=== PATIENT | male | born 1940 | race Caucasian/White ===

== ENCOUNTER 2019-11-24 08:15 | Inpatient (IN) | payer MEDICARE, OTHER ==
[~2019-11-24] VITALS: Ht 170.2 cm; Wt 63.7 kg
[2019-11-24] MEDS ORDERED: PANT40TA4 PO (09:21)
[2019-11-24] MEDS ORDERED: SIMV-46 PO (09:21)
[2019-11-24] MEDS ORDERED: DOCU-141 PO (09:21)
[2019-11-24] MEDS ORDERED: VENL150C58 PO (09:21)
[2019-11-24] MEDS ORDERED: DIVA250T4 PO (09:21)
[2019-11-24] MEDS ORDERED: ACETAMINOPHEN 325 MG TABLET PO PRN (09:30)
[2019-11-24] MEDS ORDERED: BLOOD SUGAR DIAGNOSTIC 1 EACH STRIP IN ONE (09:30)
[2019-11-24] MEDS ORDERED: MAGNESIUM HYDROXIDE 30 ML UDC PO PRN (09:30)
[2019-11-24] MEDS ORDERED: clonazePAM 0.5 MG TABLET PO PRN (09:30)
[2019-11-24] MEDS ORDERED: MAG HYDROX/AL HYDROX/SIMETH 30 ML UDC PO PRN (09:30)
[2019-11-24] MEDS ORDERED: TEMAZEPAM 7.5 MG CAPSULE PO PRN (09:30)
[2019-11-24 10:47] VITALS: BP 140/75
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
[2019-11-24] MEDS: VENLAFAXINE XR 150 MG CAP.SR.24H PO SCH ×2 (13:56→16:53)
[2019-11-24 16:00] VITALS: BP 138/70
[2019-11-24] MEDS: DOCUSATE SODIUM 100 MG CAPSULE PO SCH (16:53)
[2019-11-24 20:59] VITALS: BP 153/85
[2019-11-24] MEDS: SIMVASTATIN 20 MG TABLET PO SCH (21:48)
[2019-11-24] MEDS: DIVALPROEX SODIUM 250 MG TABLET.DR PO SCH (21:48)
[2019-11-25 07:36] LABS: ALBUMIN 3.6 g/dL (3.4-5.0); BILIRUBIN,TOTAL 1.3 mg/dL (0.2-1.0); CALCIUM, SERUM 8.6 mg/dL (8.5-10.1); CREATININE 0.9 mg/dL (0.6-1.3); POTASSIUM 4.5 mmol/L (3.5-5.1)
[2019-11-25 07:58] LABS: THYROID STIMULATING HORMONE 2.061 uIU/mL (0.358-3.74)
[2019-11-25 08:00] VITALS: BP 146/72
[2019-11-25] MEDS: PANTOPRAZOLE 40 MG TABLET.DR PO SCH (08:07)
[2019-11-25] MEDS: DOCUSATE SODIUM 100 MG CAPSULE PO SCH ×2 (08:07→16:17)
[2019-11-25] MEDS: VENLAFAXINE XR 150 MG CAP.SR.24H PO SCH ×2 (08:44→16:16)
[2019-11-25 16:01] VITALS: BP 147/67
[2019-11-25 19:58] VITALS: BP 145/67
[2019-11-25] MEDS: SIMVASTATIN 20 MG TABLET PO SCH (21:49)
[2019-11-25] MEDS: DIVALPROEX SODIUM 250 MG TABLET.DR PO SCH (21:49)
[2019-11-26] MEDS: PANTOPRAZOLE 40 MG TABLET.DR PO SCH (07:30)
[2019-11-26 08:00] VITALS: BP 125/61
[2019-11-26] MEDS: VENLAFAXINE XR 150 MG CAP.SR.24H PO SCH ×2 (08:57→17:30)
[2019-11-26] MEDS: DOCUSATE SODIUM 100 MG CAPSULE PO SCH ×2 (08:57→17:30)
--- NOTE | 2019-11-26 10:30 | NUR ---
FAMILY CONTACT: ROBBY contacted pts daughter Alondra [phone] and left a voicemail for callback to discuss pts discharge and treatment plan.
--- NOTE | 2019-11-26 11:59 | NUR ---
INITIAL DISCHARGE PLAN: Per pt he wishes to return home [address] [place] [address] where he lives with his . ROBBY will help form a safe and proper discharge in collaboration with .
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
--- NOTE | 2019-11-26 12:37 | NUR ---
FACILITY CONTACT: SW contacted [facility] Address: [address] [place] [address] and spoke with Mirna, admission coordinator who states that pt was given an overnight pass and that after he did not return for more than 72 hours they contacted his who requested pt be discharged. Per Ambar, social service director states that [facility] safely and properly discharged pt back home, she also stated that the MD gave a discharge order as well. Ambar states that pts daughter was not involved with pts care per pt and 's request. Ambar, also stated that home health was set up and everything was arranged for pt to return home.
[2019-11-26 16:00] VITALS: BP 133/69
[2019-11-26 20:32] VITALS: BP 125/78
[2019-11-26] MEDS: SIMVASTATIN 20 MG TABLET PO SCH (21:12)
[2019-11-26] MEDS: DIVALPROEX SODIUM 250 MG TABLET.DR PO SCH (21:12)
[2019-11-27 08:00] VITALS: BP 144/70
[2019-11-27] MEDS: VENLAFAXINE XR 150 MG CAP.SR.24H PO SCH ×2 (08:21→17:48)
[2019-11-27] MEDS: DOCUSATE SODIUM 100 MG CAPSULE PO SCH ×2 (08:21→17:48)
[2019-11-27] MEDS: PANTOPRAZOLE 40 MG TABLET.DR PO SCH (08:21)
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
--- NOTE | 2019-11-27 15:20 | NUR ---
GROUP NOTE: SW encouraged pt to attend group on this present day discussing "suicidal urges." Pt states that he is feeling sad due to his being hospitalized and him not being there with her. He states that his daughter kristie not answer his calls and she has not called him to provide him with an update on his 's progress. He denied suicidal ideation and states he is just sad. Pts mood appeared depressed with sad affect.
--- NOTE | 2019-11-27 15:40 | NUR ---
FAMILY CONTACT: ROBBY contacted pts daughter Alondra [phone] and left a voicemail for callback.
[2019-11-27 16:00] VITALS: BP 134/72
[2019-11-27 20:18] VITALS: BP 139/73
[2019-11-27] MEDS: DIVALPROEX SODIUM 250 MG TABLET.DR PO SCH (21:22)
[2019-11-27] MEDS: SIMVASTATIN 20 MG TABLET PO SCH (21:22)
[2019-11-28 08:00] VITALS: BP 105/55
[2019-11-28] MEDS: VENLAFAXINE XR 150 MG CAP.SR.24H PO SCH ×2 (08:06→16:21)
[2019-11-28] MEDS: DOCUSATE SODIUM 100 MG CAPSULE PO SCH ×2 (08:06→16:13)
[2019-11-28] MEDS: PANTOPRAZOLE 40 MG TABLET.DR PO SCH (08:07)
--- NOTE | 2019-11-28 14:30 | NUR ---
SNF REFERRAL: SW faxed SNF referral to [facility] Address: [address] [place] [address] and [facility] Address: [address] [place] [address] for review.
--- NOTE | 2019-11-28 14:54 | NUR ---
FAMILY CONTACT: ROBBY contacted pts daughter Alondra [phone] and informed her that MD wishes to discharge pt this Tuesday to a SNF. Daughter states that pts is out of the hospital and at a SNF and wishes for pt to be discharged to a SNF in [place], ROBBY informed her that she has faxed two SNF referrals in [place] and daughter agreed. ROBBY will provide her with updates as needed.
[2019-11-28 16:00] VITALS: BP 123/64
[2019-11-28 20:03] VITALS: BP 146/70
[2019-11-28] MEDS: SIMVASTATIN 20 MG TABLET PO SCH (21:42)
[2019-11-28] MEDS: DIVALPROEX SODIUM 250 MG TABLET.DR PO SCH (21:43)
[2019-11-29 08:00] VITALS: BP 138/65
[2019-11-29] MEDS: DOCUSATE SODIUM 100 MG CAPSULE PO SCH ×2 (08:11→17:00)
[2019-11-29] MEDS: VENLAFAXINE XR 150 MG CAP.SR.24H PO SCH ×2 (08:11→17:19)
[2019-11-29] MEDS: PANTOPRAZOLE 40 MG TABLET.DR PO SCH (08:11)
--- NOTE | 2019-11-29 09:54 | NUR ---
FAMILY CONTACT: ROBBY contacted pts daughter Alondra [phone] and left a voicemail for callback.
--- NOTE | 2019-11-29 12:08 | NUR ---
FAMILY CONTACT: ROBBY contacted pts daughter Alondra [phone] and left a voicemail for callback.
[2019-11-29 16:00] VITALS: BP 100/64
--- NOTE | 2019-11-29 19:30 | NUR ---
GPS RN NOTE, RECEIVED PATIENT AWAKE AND IN BED, NO S/S OR COMPLAINTS OF PAIN AT THIS TIME. PATIENT IS DISPLAYING NO S/S OF APPARENT DISTRESS AT THIS TIME. PATIENT BREATHING IS UNLABORED WITH EQUAL RISE AND FALL OF THE CHEST. PATIENT IS ALERT AND ORIENTED X 2-3 ON ROOM AIR WITH A SPO2 95%. PATIENT IS MED COMPLIANT, ANXIOUS AT TIMES, SUSPICIOUS, PARANOID, AND COOPERATIVE. PATIENT DENIES SUICIDAL AND HOMICIDAL IDEATIONS AT THIS TIME. PATIENT ASSISTED WITH TURNING AND REPOSITIONING Q2HR AND PRN FOR COMFORT AND CIRCULATION. PATIENT HAS NO NEEDS AT THIS TIME. PATIENT EDUCATED ON THE USE OF THE CALL MICHAELS. PATIENT BED SIDE RAILS UP X 2 FOR SAFETY. PATIENT BED IS LOCKED, LOW, WITH BED ALARM ON. WILL CONTINUE TO MONITOR THIS PATIENT Q15 MINUTES WITH THE HELP OF STAFF TO MAINTAIN SAFETY.
[2019-11-29 20:00] VITALS: BP 109/56
[2019-11-29] MEDS: DIVALPROEX SODIUM 250 MG TABLET.DR PO SCH (21:09)
[2019-11-29] MEDS: SIMVASTATIN 20 MG TABLET PO SCH (21:09)
[2019-11-30 08:00] VITALS: BP 125/53
[2019-11-30] MEDS: PANTOPRAZOLE 40 MG TABLET.DR PO SCH (08:03)
[2019-11-30] MEDS: DOCUSATE SODIUM 100 MG CAPSULE PO SCH ×3 (08:03→16:11)
[2019-11-30] MEDS: VENLAFAXINE XR 150 MG CAP.SR.24H PO SCH ×2 (08:03→16:11)
--- NOTE | 2019-11-30 08:07 | NUR ---
SNF REFERRAL: SW received a call from Lina, clinical research coordinator at [facility] Address: [address] [place] [address] stating pt has been accepted to the facility.
--- NOTE | 2019-11-30 09:09 | NUR ---
SNF REFERRAL: SW received a call from Nichole, admissions rn at [facility] Address: [address] [place] [phone] stating pt has been clinically denied due to being in a psych unit due to suicidal ideation.
--- NOTE | 2019-11-30 09:14 | NUR ---
FAMILY CONTACT: ROBBY contacted pts daughter Alondra [phone] and left a voicemail informing her pt has been accepted to [facility] and will be discharged tomorrow Tuesday12/01/19.
--- NOTE | 2019-11-30 09:55 | NUR ---
FAMILY CONTACT: SW received a call from pts daughter Alondra [phone] agreeing with pts discharge on Tuesday to [facility].
--- NOTE | 2019-11-30 10:28 | NUR ---
SNF REFERRAL: SW received a call from Lina, regional director of admissions at [facility] Address: [address] [place] [address] stating that after DON reviewed pts referral pt was not accepted due to his suicidal ideation.
--- NOTE | 2019-11-30 10:28 | NUR ---
FAMILY CONTACT: SW contacted pts daughter Alondra [phone] and left a voicemail informing her [facility] did not accept pt due to his suicidal ideation and requested a call back to discuss placement options.
--- NOTE | 2019-11-30 14:12 | NUR ---
SNF REFERRAL: ROBBY faxed SNF referral to [facility] Address: [address] [place] [address] for review. Addendum: 11/30/19 at 1423 by NATHALIE BUSTAMANTE SW faxed SNF referral to [facility] Address: [address] [place] [address] and [facility] Address: [address] [place] [address] for review.
--- NOTE | 2019-11-30 14:37 | NUR ---
SNF REFERRAL: SW received a call from Lelia admissions counselor at [facility] Address: [address] [place] [phone] stating pt could not be accepted due to them not having a male bed available and stating pt needs a locked facility.
--- NOTE | 2019-11-30 14:43 | NUR ---
SNF REFERRAL: SW faxed SNF referral to [facility] Address: [address] [facility], [place] [address] for review.
--- NOTE | 2019-11-30 14:49 | NUR ---
SNF REFERRAL: SW received a call from Deepthi acquisition marketing coordinator at [facility] Address: [address] [place] [address] stating pt was denied due to his suicidal ideation.
--- NOTE | 2019-11-30 15:56 | NUR ---
SNF REFERRAL: SW received a call from fifi Deleon at [facility] Address: [address] [place] [address] stating pt has been accepted to the facility.
[2019-11-30 16:00] VITALS: BP 123/69
--- NOTE | 2019-11-30 16:04 | NUR ---
FAMILY CONTACT: SW contacted pts daughter Alondra [phone] and informed her pt was not accepted to the SNF's in [place] and informed her pt was accepted to [facility], daughter agreed with discharge to [facility] tomorrow 12/01/19.
--- NOTE | 2019-11-30 16:09 | NUR ---
DISCHARGE NOTE: Pt discharging on Tuesday12/01/19 at 11:00am via [facility] to [facility] ([facility] Address: [address] [place] [address] . Pts daughter Alondra [phone] has been notified and agrees with discharge. Pts mood is euthymic with congrent affect. Pt denied visual/auditory hallucinations and denied suicidal/homicidal ideation. Pt will be under the care of Psychiatrist: Dr. Pamela Spears [address] [address] [phone] and Senior Water Resources Engineer: Dr Escalante Address: [address] [place] [address] . . The multidisciplinary exit care form was done, printed, signed, and given to the patient. Addendum: 12/03/19 at 0843 by NATHALIE BUSTAMANTE Pt did not discharge on Tuesday12/01/19 due to pts sister refusing discharged to [facility].
--- NOTE | 2019-11-30 19:30 | NUR ---
GPS RN NOTE, RECEIVED PATIENT AWAKE AND IN BED, NO S/S OR COMPLAINTS OF PAIN AT THIS TIME. PATIENT IS DISPLAYING NO S/S OF APPARENT DISTRESS AT THIS TIME. PATIENT BREATHING IS UNLABORED WITH EQUAL RISE AND FALL OF THE CHEST. PATIENT IS ALERT AND ORIENTED X 2-3 ON ROOM AIR WITH A SPO2 96%. PATIENT IS MED COMPLIANT, ANXIOUS AT TIMES, SUSPICIOUS, PARANOID, AND COOPERATIVE. PATIENT DENIES SUICIDAL AND HOMICIDAL IDEATIONS AT THIS TIME. PATIENT ASSISTED WITH TURNING AND REPOSITIONING Q2HR AND PRN FOR COMFORT AND CIRCULATION. PATIENT HAS NO NEEDS AT THIS TIME. PATIENT EDUCATED ON THE USE OF THE CALL MICHAELS. PATIENT BED SIDE RAILS UP X 2 FOR SAFETY. PATIENT BED IS LOCKED, LOW, WITH BED ALARM ON. WILL CONTINUE TO MONITOR THIS PATIENT Q15 MINUTES WITH THE HELP OF STAFF TO MAINTAIN SAFETY.
[2019-11-30 20:00] VITALS: BP 133/75
[2019-11-30] MEDS: DIVALPROEX SODIUM 250 MG TABLET.DR PO SCH (21:11)
[2019-11-30] MEDS: SIMVASTATIN 20 MG TABLET PO SCH (21:11)
--- NOTE | 2019-12-01 07:30 | NUR ---
INITIAL RECEIVED PATIENT AWAKE AND IN BED, NO S/S OR COMPLAINTS OF PAIN AT THIS TIME. PATIENT IS DISPLAYING NO S/S OF APPARENT DISTRESS AT THIS TIME. PATIENT BREATHING IS UNLABORED WITH EQUAL RISE AND FALL OF THE CHEST. PATIENT IS ALERT AND ORIENTED X 2-3 ON ROOM AIR WITH A SPO2 96%. Q2HR AND PRN FOR COMFORT AND CIRCULATION. PATIENT HAS NO NEEDS AT THIS TIME. PATIENT EDUCATED ON THE USE OF THE CALL MICHAELS. PATIENT BED SIDE RAILS UP X 2 FOR SAFETY. PATIENT BED IS LOCKED, LOW, WITH BED ALARM ON. WILL CONTINUE TO MONITOR THIS PATIENT Q15 MINUTES WITH THE HELP OF STAFF TO MAINTAIN SAFETY.
[2019-12-01] MEDS: PANTOPRAZOLE 40 MG TABLET.DR PO SCH (07:44)
[2019-12-01 08:00] VITALS: BP 145/71
[2019-12-01] MEDS: DOCUSATE SODIUM 100 MG CAPSULE PO SCH ×2 (08:46→17:00)
[2019-12-01] MEDS: VENLAFAXINE XR 150 MG CAP.SR.24H PO SCH ×2 (08:46→17:18)
--- NOTE | 2019-12-01 15:48 | NUR ---
RN-CO: Alondra, daughter called, and confirmed that they do not prefer a locked facility for their father ( Mr Samaniego.)
[2019-12-01 16:00] VITALS: BP 126/70
--- NOTE | 2019-12-01 17:36 | NUR ---
closing pt compliant with all medications easily directable kept safe all shift no issued this shift. will given rn report to pm shift for continuity of care pt pending discharge
--- NOTE | 2019-12-01 19:30 | NUR ---
GPS RN NOTE, RECEIVED PATIENT AWAKE AND IN BED, NO S/S OR COMPLAINTS OF PAIN AT THIS TIME. PATIENT IS DISPLAYING NO S/S OF APPARENT DISTRESS AT THIS TIME. PATIENT BREATHING IS UNLABORED WITH EQUAL RISE AND FALL OF THE CHEST. PATIENT IS ALERT AND ORIENTED X 2-3 ON ROOM AIR WITH A SPO2 99%. PATIENT IS MED COMPLIANT, ANXIOUS AT TIMES, SUSPICIOUS, PARANOID, AND COOPERATIVE. PATIENT DENIES SUICIDAL AND HOMICIDAL IDEATIONS AT THIS TIME. PATIENT ASSISTED WITH TURNING AND REPOSITIONING Q2HR AND PRN FOR COMFORT AND CIRCULATION. PATIENT HAS NO NEEDS AT THIS TIME. PATIENT EDUCATED ON THE USE OF THE CALL MICHAELS. PATIENT BED SIDE RAILS UP X 2 FOR SAFETY. PATIENT BED IS LOCKED, LOW, WITH BED ALARM ON. WILL CONTINUE TO MONITOR THIS PATIENT Q15 MINUTES WITH THE HELP OF STAFF TO MAINTAIN SAFETY.
[2019-12-01 20:34] VITALS: BP 144/76
[2019-12-01] MEDS: SIMVASTATIN 20 MG TABLET PO SCH (21:11)
[2019-12-01] MEDS: DIVALPROEX SODIUM 250 MG TABLET.DR PO SCH (21:11)
[2019-12-02] MEDS: PANTOPRAZOLE 40 MG TABLET.DR PO SCH (07:56)
[2019-12-02 08:00] VITALS: BP 113/57
[2019-12-02] MEDS: VENLAFAXINE XR 150 MG CAP.SR.24H PO SCH ×2 (08:00→16:17)
[2019-12-02] MEDS: DOCUSATE SODIUM 100 MG CAPSULE PO SCH ×2 (08:00→16:17)
[2019-12-02 16:00] VITALS: BP 143/67
[2019-12-02 20:44] VITALS: BP 150/74
[2019-12-02] MEDS: DIVALPROEX SODIUM 250 MG TABLET.DR PO SCH (21:01)
[2019-12-02] MEDS: SIMVASTATIN 20 MG TABLET PO SCH (21:01)
[2019-12-03] MEDS: PANTOPRAZOLE 40 MG TABLET.DR PO SCH (07:20)
[2019-12-03 08:00] VITALS: BP 120/67
--- NOTE | 2019-12-03 08:05 | NUR ---
FAMILY CONTACT: SW received a voicemail from pts daughter Alondra [phone] stating that pts sister became "ballistic." due to stating that [facility] was a locked psych unit and was refusing for him to be discharged there. SW called her back and left a voicemail informing her that [place] [facility] [place] psych [place]ts. ROBBY requested a callback to coordinate discharge.
[2019-12-03] MEDS: VENLAFAXINE XR 150 MG CAP.SR.24H PO SCH ×2 (08:22→16:41)
[2019-12-03] MEDS: DOCUSATE SODIUM 100 MG CAPSULE PO SCH ×2 (08:22→16:41)
--- NOTE | 2019-12-03 09:07 | NUR ---
SNF REFERRAL: ROBBY contacted Edyta, home health care coordinator at [facility] Address: [address] [place] [address] to inquire on referral, she stated referral was being reviewed.
--- NOTE | 2019-12-03 09:11 | NUR ---
FAMILY CONTACT: ROBBY contacted pts daughter Alondra [phone] and left a voicemail for callback.
--- NOTE | 2019-12-03 09:15 | NUR ---
FAMILY CONTACT: ROBBY contacted pts sister Chandrika [phone] who stated she refused pt to be discharged to [facility] due to it being a locked facility. SW explained that daughter had agreed and sister stated that daughter is not well informed and does not know anything about SNF's. Sister stated that she owns various SNF's and states that she knows the laws and demanded SW to place pt in a non-locked facility near [place]. SW explained that several referrals were made and that not one SNF in [place] accepted pt due to him currently being on a 5250 hold, sister understood and stated that pt needs to be in a board and care or assisted living facility and requested SW collaborate with her cafe assistant Khushi Grimes [phone] to assist SW find pt a board and care near the [facility]. ROBBY will collaborate with fifi for a safe and proper discharge. Addendum: 12/03/19 at 0932 by NATHALIE BUSTAMANTE ROBBY also explained that pts daughter Alondra is the one making decisions for pt unless otherwise specified by daughter. Sister understood.
--- NOTE | 2019-12-03 09:53 | NUR ---
FAMILY CONTACT: SW received a call from pts sister Chandrika [phone] stating that pt is self responsible and stated that if pts daughter is not collaborating with SW then SW should ask pt where he wishes to discharge to and stated that if he chooses to go home then she can guide him after that.
--- NOTE | 2019-12-03 10:45 | NUR ---
INDIVIDUAL MEETING: SW spoke with pt regarding his discharge plan, pt stated that he did not know what he wanted to do and stated that he wished for his sister to decide for him. SW informed him that sister wishes for him to go to a board and care or assisted living or a non locked SNF and pt agreed. SW informed him that SW is working on placement for him. Pt understood and agreed.
--- NOTE | 2019-12-03 11:22 | NUR ---
PLACEMENT: ROBBY received a call from Khushi Grimes [phone] quality technician from [facility] who requested clinical information. ROBBY faxed clinicals to .
--- NOTE | 2019-12-03 13:07 | NUR ---
FAMILY CONTACT: SW received a call from pts daughter Alondra [phone] stating that pt sister Chandrika is making her life "a living hell" due to pts placement. Daughter states that she wishes for pt to be discharged to a SNF and was agreeable with pt being discharge to [facility] but her aunt got involved. Daughter states that she is okay with him being discharged to a board and care if SW is able to find him something within his budget.
--- NOTE | 2019-12-03 13:30 | NUR ---
SNF REFERRAL: SW was informed by that he was contacted by Shweta MINAYA at [facility] Address: [address] [place] [address] who stated pt was not accepted to the facility due to pts wandering behavior and needing locked placement.
--- NOTE | 2019-12-03 13:35 | NUR ---
FAMILY CONTACT: ROBBY contacted pts daughter Alondra [phone] and left a voicemail for callback.
--- NOTE | 2019-12-03 15:50 | NUR ---
FAMILY CONTACT: ROBBY contacted pts daughter Alondra [phone] and left a voicemail informing her pt will be discharged tomorrow to [facility].
[2019-12-03 16:00] VITALS: BP 132/67
--- NOTE | 2019-12-03 16:19 | NUR ---
INDIVIDUAL MEETING: ROBBY and met with pt and explained his discharge to [facility] pt was refusing to go and MD provided intervention, pt agreed to be discharged tomorrow 12/04/19.
[2019-12-03 20:37] VITALS: BP 125/66
[2019-12-03] MEDS: DIVALPROEX SODIUM 250 MG TABLET.DR PO SCH (21:19)
[2019-12-03] MEDS: SIMVASTATIN 20 MG TABLET PO SCH (21:20)
[2019-12-04] MEDS: PANTOPRAZOLE 40 MG TABLET.DR PO SCH (07:29)
[2019-12-04 07:38] LABS: BASOPHILS % (AUTO) 0.8 % (0.0-2.0); EOSINOPHILS % (AUTO) 3.2 % (0.0-6.0); HEMATOCRIT 45 % (39-51); HEMOGLOBIN 14.8 g/dL (13.5-17.5); LYMPHOCYTES # (AUTO) 1.5 /CMM (0.8-4.8); LYMPHOCYTES % (AUTO) 35.5 % (20.0-44.0); MEAN CORPUSCULAR HGB CONC 33 g/dl (31.0-36.0); MEAN CORPUSCULAR VOLUME 89 fL (80-96); MONOCYTES # (AUTO) 0.4 /CMM (0.1-1.30); MONOCYTES % (AUTO) 9.7 % (2.0-12.0); NEUTROPHILS # (AUTO) 2.1 /CMM (1.8-8.9); NEUTROPHILS % (AUTO) 50.8 % (43.0-81.0); PLATELET COUNT (AUTO) 154 /CMM (150-450); RED BLOOD CELL COUNT(AUTO) 5.08 MIL/uL (4.5-6.0); WHITE BLOOD COUNT (AUTO) 4.2 K/uL (4.3-11.0)
[2019-12-04 08:00] VITALS: BP 120/56
[2019-12-04] MEDS: VENLAFAXINE XR 150 MG CAP.SR.24H PO SCH (08:07)
[2019-12-04] MEDS: DOCUSATE SODIUM 100 MG CAPSULE PO SCH (08:07)
[2019-12-04 08:19] LABS: ALBUMIN 3.3 g/dL (3.4-5.0); CALCIUM, SERUM 9.2 mg/dL (8.5-10.1); CREATININE 1.1 mg/dL (0.6-1.3); POTASSIUM 4.1 mmol/L (3.5-5.1); TOTAL PROTEIN, SERUM 6.7 g/dL (6.4-8.2)
--- NOTE | 2019-12-04 08:37 | NUR ---
FAMILY CONTACT: SW contacted pts daughter Alondra [phone] who stated that she does not agree with pt being discharged to [facility] due to it being a locked facility and stated that pts sister Chandrika will take over pts discharge planning.
--- NOTE | 2019-12-04 08:41 | NUR ---
FAMILY CONTACT: ROBBY contacted pts sister Chandrika [phone] who stated she refused pt to be discharged to [facility] due to it being a locked facility, Chandrika stated that if SW discharged pt to [place] she will report the hospital. ROBBY explained that MD has recommend pt to be discharged to a locked SNF and sister disagreed and stated she did not care what MD had to recommend. ROBBY explained that all SNF referrals were denied and also stated that her emergency planning and response manager did not get back to for follow up. ROBBY stated that MD has placed discharged order and if she is interfering with pts discharge then ROBBY will have to serve her with a Medicare Letter of Denial. Sister asked for [address] him and asked SW to fax clinicals to another marker Khushi S: P:[phone] F: [phone]. ROBBY contacted and faxed clinicals to Khushi.
--- NOTE | 2019-12-04 09:15 | NUR ---
FAMILY CONTACT: SW received a call from pts sister Chandrika [phone] asking for SW to refer pt [facility] [address], [address] . ROBBY faxed referral and is waiting for approval.
--- NOTE | 2019-12-04 10:03 | NUR ---
SNF REFERRAL: SW received a call from MATT, therapy coordinator at [facility] [address] [place], [address] stating pt has been accepted to the facility.
--- NOTE | 2019-12-04 10:06 | NUR ---
FAMILY CONTACT: SW contacted pts sister Chandrika [phone] to inform her pt has been accepted to [facility], sister agreed with discharge on this present day.
--- NOTE | 2019-12-04 10:21 | NUR ---
DISCHARGE NOTE: Pt discharging at 3:00pm via [facility] to [facility] [address] [place], [address] . Pts daughter Alondra [phone] has been notified and agrees with discharge plan. Pts mood is euthymic with congruent affect. Pt denied visual/auditory hallucinations. Pts mood is anxious with congruent affect. Pt will be under the care of Delicatessen Manager: Dr Escalante Address: [address] [place] [address] Gonzalez Address: [address] [place] [address] . The multidisciplinary exitcare form was done, printed, signed, and given to the patient.
--- NOTE | 2019-12-04 15:10 | NUR ---
PT DC AT THIS TIME TO [facility]. PT DC ORDERS REVIEWED W AMBULANCE STAFF WITH VERBALIZED UNDERSTANDING. PT ALERT ORIENTED X 4, CALM DIRECTABLE. VS STABLE, DENIES SI HI AH VH AT TIME OF DC. VALUABLES RETURNED TO PT. ID [id number] REMOVED. ESCORTED OFFOF UNIT.
[2019-12-04 16:00] VITALS: BP 149/73
== END 2019-12-04 15:10 | DRG 885 ==
LOC: GPS 08:15
PROVIDERS: ADMIT Psychiatry & Neurology Psychiatry; ATTEND Student in an Organized Health Care Education/Training Program
DX: F31.30 Bipolar disorder, current episode depressed, mild or moderate severity, unspecified (principal); F23 Brief psychotic disorder; K21.9 Gastro-esophageal reflux disease without esophagitis; E78.5 Hyperlipidemia, unspecified; G20 Parkinson's disease; R73.9 Hyperglycemia, unspecified
CPT/HCPCS: 36415; 80053-TC; 80061-TC; 80164-TC; 82962-TC; 84443-TC; 85025-TC; 87081-TC